=== PATIENT | male | born 1940 | race Caucasian/White ===

== ENCOUNTER 2017-06-12 13:23 | Inpatient (IN) | payer MEDICARE, OTHER, SELFPAY ==
[2017-06-12] VITALS (9 sets, daily range): BP systolic 120–139; BP diastolic 58–79; PULSE 55–94; RESP 15–18; TEMP 36.7–37.3; O2SAT 96–99; BMI 30.3; BMI 30.2
--- NOTE | 2017-06-12 13:52 | CT_ITS ---
STUDY: CT BRAIN WITHOUT CONTRAST REASON FOR EXAM: Male, 76 years old. Syncope RADIATION DOSAGE (If Supplied By Facility): CTDIvol = ( 44.99 ) mGy, DLP = ( 812.98 ) mGycm TECHNIQUE: Transaxial CT imaging of the brain was performed without administration of intravenous contrast material. Individualized dose optimization techniques were used for this CT. COMPARISON: 11/26/2003 FINDINGS: Normal soft tissue structures. Normal calvarium. There is mild cerebral atrophy with widening of the extra-axial spaces and ventricular dilatation. There are areas of decreased attenuation within the white matter tracts of the supratentorial brain, consistent with microvascular disease changes. Normal basal ganglia and thalami. Normal brainstem. There is mild cerebellar atrophy. There is no intracranial hemorrhage. There are no findings of an acute ischemic infarction. Normal visualized paranasal sinuses. CT/Brain/Head without Contrast IMPRESSION: Chronic involutional changes of the brain. Electronically Signed: Shan Nunez DO at 14:56 EDT Tel , Service support ,
--- NOTE | 2017-06-12 13:52 | RAD_ITS ---
STUDY: X-RAY CHEST REASON FOR EXAM: Male, 76 years old. Syncope. TECHNIQUE: Single frontal view of the chest. COMPARISON: None. FINDINGS: There is low volume inspiration. There is no demonstrated pleural abnormality. There is borderline cardiomegaly. Normal mediastinum and nemo. Normal visualized pulmonary arteries. Normal visualized aortic arch and descending thoracic aorta. Normal visualized thoracic spine. Normal visualized ribs, clavicles, and shoulders. There is no demonstrated abnormality of the visualized soft tissue structures of the upper abdomen. RAD/Chest 1 View (Portable) IMPRESSION: Borderline cardiomegaly with low volume inspiration. No acute pathology. Electronically Signed: Mohinder Ross MD at 14:23 EDT , Service support ,
--- NOTE | 2017-06-12 13:52 | CT_ITS ---
STUDY: CT CERVICAL SPINE WITHOUT CONTRAST REASON FOR EXAM: Male, 76 years old. Syncope with neck injury RADIATION DOSAGE (If Supplied By Facility): CTDIvol = ( 13.29 ) mGy, DLP = ( 289.75 ) mGycm TECHNIQUE: High resolution transaxial imaging was performed without contrast material. Sagittal and coronal images were reconstructed. Individualized dose optimization techniques were used for this CT. COMPARISON: None FINDINGS: Normal craniovertebral junction. Normal anterior atlantoaxial articulation. Normal odontoid process. Normal cervical lordosis. Normal vertebral bodies and posterior osseous elements. No acute fracture or listhesis. Mild diffuse demineralization. Odve-sk-oroyvlpw multilevel degenerative disc disease without critical central canal stenosis. Multilevel facet degenerative change. Normal visualized soft tissue structures. CT/Spine Cervical without Contras IMPRESSION: Multilevel degenerative changes, as described above. Electronically Signed: Shan Nunez DO at 14:56 EDT Tel , Service support ,
--- NOTE | 2017-06-12 13:55 | EKG12_ITS ---
Test Reason : DYSRHYTHMIA Blood Pressure : / mmHG Vent. Rate : 054 BPM Atrial Rate : 054 BPM P-R Int : 200 ms QRS Dur : 112 ms QT Int : 454 ms P-R-T Axes : 060 006 022 degrees QTc Int : 430 ms Sinus bradycardia Otherwise normal ECG Confirmed by JEAN PAUL KOO, TULIO ([id number]), video news editor JAZMÍN OCONNELL ([id number] on 06/14/2017 1:47:07 PM Referred By: ARMAND Confirmed By:TULIO REAVES MD
--- NOTE | 2017-06-12 14:00 | ED.VISSUMM ---
- ER Visit Summary Date of Service: 06/12/17 Chief Complaint: GI bleed History of Present Illness: The patient is a 76 M who had a colonoscopy about 10 days ago. This was a routine colonoscopy and he did have several polyps removed. He said everything else went well. This was done by Dr. Westbrook. The patient was doing well until 2 days ago. He had a bowel movement with bright red blood. He developed nausea, dizziness, and he had a syncopal episode. He did hit his head. He had a similar episode yesterday. He had 3 episodes of vomiting and syncope. Today, his family felt he looked pale and so they brought him to the ED. He denies any abdominal pain. He does take aspirin. Physical Examination: Vital signs unremarkable. Afebrile. Alert and oriented. Skin slightly pale but otherwise normal. Heart regular. Lungs clear. Abdomen soft and nontender. Test Results: EKG, troponin, labs, coags, type and screen, CT head and neck, and chest x-ray pending. Emergency Department Course and Treatment: IV access obtained. Patient placed on a monitor. I spoke with Dr. Chun who was on-call for Dr. Westbrook. Patient will likely need rescoped. He said the patient should have nothing more than clears. I made the patient n.p.o. for now. Will continue to monitor. Hemoglobin 9.1. The rest of his lab work unremarkable. Troponin and EKG were fine. Chest x-ray, CT head and neck were fine. Just chronic changes. Patient remained stable. No further syncope or bleeding. No symptoms. I believe at this time, he is appropriate for medical floor with telemetry. I spoke with the hospitalist who will admit. Treatment Plan: As above Disposition: Admission Impression: 1. GI bleed 2. Anemia This note was generated with [employer] dictation software. It may contain incorrect words, spelling, and punctuation that were not noted in review of the chart prior to signing ED Disposition - Plan for ED Patient: Chief Complaint: GI Bleed Referrals: Reji Esteban MD [Primary Care Provider] -
[2017-06-12 14:27] LABS: Absolute Lymphocyte Count 1.37 X10^3/ul (0.83-4.51); Absolute Neutrophil Count 7.2 X10^3/uL (2.0-7.7); Basophil# 0.03 X10^3/uL; Basophil% 0.3 % (0-1); Eosinophil# 0.02 X10^3/uL; Eosinophils% 0.2 % (0-5); Hematocrit 26.6 % (40-54); Hemoglobin 9.1 g/dl (13.0-16.5); Lymphocyte # 1.37 X10^3/ul (4.0); Lymphocyte % 14.8 % (19-41); Mean Corp Hgb Conc 34.2 g/gl (32-36); Mean Corpuscular Hgb 31.4 pg (27.0-32.0); Mean Corpuscular Volume 91.7 fL (80-94); Mean Platelet Vol. 10.1 fl (6.2-12.0); Monocyte# 0.62 X10^3/uL; Monocyte% 6.7 % (0-10); Neutrophil # 7.22 X10^3/uL (2.7-7.7); Neutrophil % 77.8 % (47-70); POSITIVE COUNT NO; POSITIVE DIFFERENTIAL NO; POSITIVE MORPHOLOGY NO; Platelet Count 176 K/mm3 (150-450); RBC Distribution Width CV 13.8 % (11.6-14.6); RBC Distribution Width SD 44.9 fl (35.1-43.9); White Blood Count 9.3 K/mm3 (4.4-11.0)
[2017-06-12 14:43] LABS: ALB/GLOB Ratio 1.1 RATIO (0.9-2.4); AST(SGOT) 14 U/L (15-37); Alanine Aminotransfer ALT/SGPT 26 U/L (16-61); Alkaline Phosphatase 60 U/L (45-117); Anion Gap 8 (5-15); BUN 17 mg/dL (7-18); BUN/Creat Ratio 17.3 RATIO (10-20); Calcium,Total 7.5 mg/dL (8.5-10.1); Chloride 116 mmol/L (98-107); Creatinine, Serum 0.98 mg/dL (0.70-1.30); EST Glomerular Filtration Rate 79 mL/min (>60); Est Glom Filt Rate - Afr Amer 96 mL/min (>60); Estimated Creatinine Clearance 59.68 ml/min; Globulin 2.7 g/dL (2.2-4.2); Glucose 110 mg/dL (74-106); Potassium 3.6 mmol/L (3.5-5.1); Protein, Total 5.7 g/dL (6.4-8.2); Sodium Level 148 mmol/L (136-145)
[2017-06-12 14:45] LABS: International Normalized Ratio 1.2; Prothrombin Time (Protime)PT. 15.5 SECONDS (11.7-14.9)
[2017-06-12 14:46] LABS: Partial Thromboplast Time 26.1 Seconds (24.1-36.2)
--- NOTE | 2017-06-12 16:16 | PCM.HP.STD ---
Problem List (1) Hypertension Status: Chronic (2) BPH (benign prostatic hyperplasia) Status: Chronic (3) Colonic polyps status post polypectomy Status: Acute (4) Lower GI bleed Status: Acute (5) Acute anemia secondary to LGI blood loss Status: Acute (6) Syncope and collapse Status: Acute (7) Fall Status: Acute History of Present Illness Date of Admission: 06/12/17 Chief Complaint: Syncope and lower GI bleed The patient is a 76 year old M came to ER with lower GI bleed since night after it colonoscopy with multiple polypectomy about 10 days ago. Patient further said he had multiple bright red rectal bleed with diarrhea on and Wednesday night. Patient also felt nauseated dizziness. He had syncope and hit his head on . He had similar 3-4 times syncope yesterday but did not had major injury. In the ER, CT C-spine and brain was done which does not show acute change. Chest x-ray no acute pathology. Hemoglobin in the ER 9.8 g percent platelet 1 76,000. No previous lab work to compare with. EKG shows sinus bradycardia at 54 beats per minute. No acute ST-T changes Past Medical History Past Medical History (Chronic Problems): Chronic Problems Hypertension (Chronic) BPH (benign prostatic hyperplasia) (Chronic) Allergies No Known Allergies Allergy (Verified 06/12/17 13:28) Home Medications: Ambulatory Orders Medication Instructions Recorded Amlodipine Besylate [Norvasc] 2.5 mg PO DAILY 06/12/17 Aspirin [Aspirin, Baby] 81 mg PO DAILY@0800 06/12/17 Atorvastatin Calcium 20 mg PO QHS 06/12/17 Doxazosin Mesylate [Cardura] 8 mg PO DAILY 06/12/17 Finasteride [Proscar] 5 mg PO DAILY 06/12/17 Multivitamin [Multiple Vitamins] 1 each PO DAILY 06/12/17 Tadalafil [Cialis] 20 mg PO 06/12/17 Smoking Status: Never smoker Review of Systems Constitutional: Denies: Chills, Fever, Weight Change HEENT: Denies: Head Aches, Sinus Congestion, Sinus Drainage Cardiovascular: Reports: Light Headedness, Syncope. Denies: Chest Pain, Palpitations Respiratory: Denies: Cough, Shortness of breath at rest, Sputum production Gastrointestinal: Reports: Hematochezia, Nausea. Denies: Abdominal Pain, Vomiting Genitourinary: Denies: Dysuria Musculoskeletal: Denies: Joint Pain, Joint Tenderness Skin: Denies: Rash, Wounds Neurological: Denies: Numbness, Tingling, Focal weakness Psychiatric: Denies: Anxiety, Depression, Homicidal Ideations, Suicidal Ideations Hematologic/ Lymphatic: Denies: Easy Bruising, Easy Bleeding VTE Information - Inpt Only VTE Present on Admission: No VTE Mechan Device Prophylaxis: SCD's Reason prophylaxis not ordered:: Medical Contraindication - Active lower GI bleed Patient Problems: Active and Suspected Problems Colonic polyps status post polypectomy (Acute) Lower GI bleed (Acute) Acute anemia secondary to LGI blood loss (Acute) Syncope and collapse (Acute) Fall (Acute) - Physical Exam General: Alert, Oriented x3, Cooperative HEENT: Atraumatic, PERRLA, EOMI, Normocephalic Oral: Dry Mucosa Neck: Supple, No JVD, Negative Carotid Bruits Lungs: Clear to auscultation, Normal air movement Cardiovascular: Normal S1, Normal S2, No murmurs, Bradycardic Abdomen: Bowel Sounds Present, Soft, Non Tender, Non-Distended Extremities: No edema, Capillary Refill Less than 3 Seconds Skin: No rashes, No breakdown Musculoskeletal: No Tenderness to Palpation of Joints or Extremities Neurological: Cranial nerves II-XII grossly intact Psych/Mental Status: Normal Affect, Appropriate Vital Signs Temp Pulse Resp BP Pulse Ox 98.1 F 64 18 120/77 97 06/12/17 13:24 06/12/17 16:02 06/12/17 16:02 06/12/17 16:02 06/12/17 16:02 Assessment/Plan Active and Suspected Problems Colonic polyps status post polypectomy (Acute) Lower GI bleed (Acute) Acute anemia secondary to LGI blood loss (Acute) Syncope and collapse (Acute) Fall (Acute) The patient is a 76 year old M came to ER with lower GI bleed since night after it colonoscopy with multiple polypectomy about 10 days ago. Patient further said he had multiple bright red rectal bleed with diarrhea on and Wednesday night. Patient also felt nauseated dizziness. He had syncope and hit his head on . He had similar 3-4 times syncope yesterday but did not had major injury. In the ER, CT C-spine and brain was done which does not show acute change. Chest x-ray no acute pathology. Hemoglobin in the ER 9.8 g percent platelet 1 76,000. No previous lab work to compare with. EKG shows sinus bradycardia at 54 beats per minute. No acute ST-T changes. 1. Acute blood loss anemia secondary to lower GI bleed: Patient is being admitted in PCU. H&H every 6 hourly. If hemoglobin drops less than 7.5 g percent, transfuse 1 unit of PRBC. IV fluid resuscitation. Monitor strict I&O's. Dr. Gonzalez been consulted by ER doctor Dr. El and he advised to keep patient n.p.o. per midnight for colonoscopy tomorrow a.m. 2. Lower GI bleed status post multiple polypectomies about 10 days ago: As mentioned above. Watch out for rectal bleed. 3. Multiple syncope and collapse and fall: I think most probably he had syncope with collapse and fall secondary to hypotension due to rectal bleed. Orthostatic vitals. IV fluid resuscitation. monitor on cardiac telemetry. Serial cardiac enzymes. Patient denies coronary artery disease, CHF or arrhythmia. 4. Other chronic comorbidities include BPH and hypertension: Blood pressure is 120/77. Does not need antihypertensive medication especially with ongoing lower GI bleed. DVT prophylaxis: Pharmacological prophylaxis contraindicated. Bilateral SCDs. Laboratory Results 06/12/17 14:10: WBC 9.3, RBC 2.90 L, Hgb 9.1 L, Hct 26.6 L, MCV 91.7, MCH 31.4, MCHC 34.2, RDW 13.8, RDW Differential 44.9 H, Plt Count 176, MPV 10.1, Immature Gran % (Auto) 0.200, Neut % (Auto) 77.8 H, Lymph % (Auto) 14.8 L, [place] % (Auto) 6.7, Eos % (Auto) 0.2, Baso % (Auto) 0.3, Absolute Neuts (auto) 7.2, Absolute Lymphs (auto) 1.37, Total Counted Not Reportable 06/12/17 14:10: PT 15.5 H, INR 1.2, APTT 26.1 06/12/17 14:10: Sodium 148 H, Potassium 3.6, Chloride 116 H, Carbon Dioxide 24.0, Anion Gap 8, BUN 17, Creatinine 0.98, Estim Creat Clear Calc 59.68, Est GFR (MDRD) Af Amer 96, Est GFR (MDRD) Non-Af 79, BUN/Creatinine Ratio 17.3, Glucose 110 H, Calcium 7.5 L, Total Bilirubin 0.30, AST 14 L, ALT 26, Alkaline Phosphatase 60, Troponin I < 0.02, Total Protein 5.7 L, Albumin 3.0 L, Globulin 2.7, Albumin/Globulin Ratio 1.1 06/12/17 14:10: Blood Type O POSITIVE, Antibody Screen NEGATIVE Clinical Impression(s) from Imaging Studies Brain CT 06/12/17 13:52 IMPRESSION: Chronic involutional changes of the brain. Electronically Signed: Shan Nunez DO at 14:56 EDT Tel , Service support , Cervical Spine CT 06/12/17 13:52 IMPRESSION: Multilevel degenerative changes, as described above. Electronically Signed: Shan Nunez DO at 14:56 EDT Tel , Service support , Chest X-Ray 06/12/17 13:52 IMPRESSION: Borderline cardiomegaly with low volume inspiration. No acute pathology. Electronically Signed: Mohinder Ross MD at 14:23 EDT , Service support , This note was generated with [employer] dictation software. Every effort was made to ensure accuracy, however computerized player development manager mistakes may persist. [] Code Visit Inpatient E&M: 79946 Init Hosp L3
--- NOTE | 2017-06-12 16:28 | HP.PCM_ITS ---
Problem List (1) Hypertension Status: Chronic (2) BPH (benign prostatic hyperplasia) Status: Chronic (3) Colonic polyps status post polypectomy Status: Acute (4) Lower GI bleed Status: Acute (5) Acute anemia secondary to LGI blood loss Status: Acute (6) Syncope and collapse Status: Acute (7) Fall Status: Acute History of Present Illness Date of Admission: 06/12/17 Chief Complaint: Syncope and lower GI bleed The patient is a 76 year old M came to ER with lower GI bleed since night after it colonoscopy with multiple polypectomy about 10 days ago. Patient further said he had multiple bright red rectal bleed with diarrhea on and Wednesday night. Patient also felt nauseated dizziness. He had syncope and hit his head on . He had similar 3-4 times syncope yesterday but did not had major injury. In the ER, CT C-spine and brain was done which does not show acute change. Chest x-ray no acute pathology. Hemoglobin in the ER 9.8 g percent platelet 1 76,000. No previous lab work to compare with. EKG shows sinus bradycardia at 54 beats per minute. No acute ST-T changes Past Medical History Past Medical History (Chronic Problems): Chronic Problems Hypertension (Chronic) BPH (benign prostatic hyperplasia) (Chronic) Allergies No Known Allergies Allergy (Verified 06/12/17 13:28) Home Medications: Ambulatory Orders Medication Instructions Recorded Amlodipine Besylate [Norvasc] 2.5 mg PO DAILY 06/12/17 Aspirin [Aspirin, Baby] 81 mg PO DAILY@0800 06/12/17 Atorvastatin Calcium 20 mg PO QHS 06/12/17 Doxazosin Mesylate [Cardura] 8 mg PO DAILY 06/12/17 Finasteride [Proscar] 5 mg PO DAILY 06/12/17 Multivitamin [Multiple Vitamins] 1 each PO DAILY 06/12/17 Tadalafil [Cialis] 20 mg PO 06/12/17 Smoking Status: Never smoker Review of Systems Constitutional: Denies: Chills, Fever, Weight Change HEENT: Denies: Head Aches, Sinus Congestion, Sinus Drainage Cardiovascular: Reports: Light Headedness, Syncope. Denies: Chest Pain, Palpitations Respiratory: Denies: Cough, Shortness of breath at rest, Sputum production Gastrointestinal: Reports: Hematochezia, Nausea. Denies: Abdominal Pain, Vomiting Genitourinary: Denies: Dysuria Musculoskeletal: Denies: Joint Pain, Joint Tenderness Skin: Denies: Rash, Wounds Neurological: Denies: Numbness, Tingling, Focal weakness Psychiatric: Denies: Anxiety, Depression, Homicidal Ideations, Suicidal Ideations Hematologic/ Lymphatic: Denies: Easy Bruising, Easy Bleeding VTE Information - Inpt Only VTE Present on Admission: No VTE Mechan Device Prophylaxis: SCD's Reason prophylaxis not ordered:: Medical Contraindication - Active lower GI bleed Patient Problems: Active and Suspected Problems Colonic polyps status post polypectomy (Acute) Lower GI bleed (Acute) Acute anemia secondary to LGI blood loss (Acute) Syncope and collapse (Acute) Fall (Acute) - Physical Exam General: Alert, Oriented x3, Cooperative HEENT: Atraumatic, PERRLA, EOMI, Normocephalic Oral: Dry Mucosa Neck: Supple, No JVD, Negative Carotid Bruits Lungs: Clear to auscultation, Normal air movement Cardiovascular: Normal S1, Normal S2, No murmurs, Bradycardic Abdomen: Bowel Sounds Present, Soft, Non Tender, Non-Distended Extremities: No edema, Capillary Refill Less than 3 Seconds Skin: No rashes, No breakdown Musculoskeletal: No Tenderness to Palpation of Joints or Extremities Neurological: Cranial nerves II-XII grossly intact Psych/Mental Status: Normal Affect, Appropriate Vital Signs Temp Pulse Resp BP Pulse Ox 98.1 F 64 18 120/77 97 06/12/17 13:24 06/12/17 16:02 06/12/17 16:02 06/12/17 16:02 06/12/17 16:02 Assessment/Plan Active and Suspected Problems Colonic polyps status post polypectomy (Acute) Lower GI bleed (Acute) Acute anemia secondary to LGI blood loss (Acute) Syncope and collapse (Acute) Fall (Acute) The patient is a 76 year old M came to ER with lower GI bleed since night after it colonoscopy with multiple polypectomy about 10 days ago. Patient further said he had multiple bright red rectal bleed with diarrhea on and Wednesday night. Patient also felt nauseated dizziness. He had syncope and hit his head on . He had similar 3-4 times syncope yesterday but did not had major injury. In the ER, CT C-spine and brain was done which does not show acute change. Chest x-ray no acute pathology. Hemoglobin in the ER 9.8 g percent platelet 1 76,000. No previous lab work to compare with. EKG shows sinus bradycardia at 54 beats per minute. No acute ST-T changes. 1. Acute blood loss anemia secondary to lower GI bleed: Patient is being admitted in PCU. H&H every 6 hourly. If hemoglobin drops less than 7.5 g percent, transfuse 1 unit of PRBC. IV fluid resuscitation. Monitor strict I&O' s. Dr. Gonzalez been consulted by ER doctor Dr. El and he advised to keep patient n.p.o. per midnight for colonoscopy tomorrow a.m. 2. Lower GI bleed status post multiple polypectomies about 10 days ago: As mentioned above. Watch out for rectal bleed. 3. Multiple syncope and collapse and fall: I think most probably he had syncope with collapse and fall secondary to hypotension due to rectal bleed. Orthostatic vitals. IV fluid resuscitation. monitor on cardiac telemetry. Serial cardiac enzymes. Patient denies coronary artery disease, CHF or arrhythmia. 4. Other chronic comorbidities include BPH and hypertension: Blood pressure is 120/77. Does not need antihypertensive medication especially with ongoing lower GI bleed. DVT prophylaxis: Pharmacological prophylaxis contraindicated. Bilateral SCDs. Laboratory Results 06/12/17 14:10: WBC 9.3, RBC 2.90 L, Hgb 9.1 L, Hct 26.6 L, MCV 91.7, MCH 31.4, MCHC 34.2, RDW 13.8, RDW Differential 44.9 H, Plt Count 176, MPV 10.1, Immature Gran % (Auto) 0.200, Neut % (Auto) 77.8 H, Lymph % (Auto) 14.8 L, [place] % (Auto) 6.7, Eos % (Auto) 0.2, Baso % (Auto) 0.3, Absolute Neuts (auto) 7.2, Absolute Lymphs (auto) 1.37, Total Counted Not Reportable 06/12/17 14:10: PT 15.5 H, INR 1.2, APTT 26.1 06/12/17 14:10: Sodium 148 H, Potassium 3.6, Chloride 116 H, Carbon Dioxide 24.0 , Anion Gap 8, BUN 17, Creatinine 0.98, Estim Creat Clear Calc 59.68, Est GFR ( MDRD) Af Amer 96, Est GFR (MDRD) Non-Af 79, BUN/Creatinine Ratio 17.3, Glucose 110 H, Calcium 7.5 L, Total Bilirubin 0.30, AST 14 L, ALT 26, Alkaline Phosphatase 60, Troponin I < 0.02, Total Protein 5.7 L, Albumin 3.0 L, Globulin 2.7, Albumin/Globulin Ratio 1.1 06/12/17 14:10: Blood Type O POSITIVE, Antibody Screen NEGATIVE Clinical Impression(s) from Imaging Studies Brain CT 06/12/17 13:52 IMPRESSION: Chronic involutional changes of the brain. Electronically Signed: Shan Nunez DO at 14:56 EDT Tel , Service support , Cervical Spine CT 06/12/17 13:52 IMPRESSION: Multilevel degenerative changes, as described above. Electronically Signed: Shan Nunez DO at 14:56 EDT Tel , Service support , Chest X-Ray 06/12/17 13:52 IMPRESSION: Borderline cardiomegaly with low volume inspiration. No acute pathology. Electronically Signed: Mohinder Ross MD at 14:23 EDT , Service support , This note was generated with [employer] dictation software. Every effort was made to ensure accuracy, however computerized air brake adjuster mistakes may persist. [] Code Visit Inpatient E&M: 10330 Init Hosp L3
[2017-06-12] MEDS: 0.9% Normal Saline 1,000 ML 500 ML IV (17:24)
[2017-06-12 17:45] LABS: Bedside Glucose 107 mg/dL (70-110)
[2017-06-12 18:11] LABS: Hematocrit 26.1 % (40-54); Hemoglobin 8.8 g/dl (13.0-16.5)
--- NOTE | 2017-06-12 19:21 | CON.PCM_ITS ---
Reason for Consult Date of Consultation: 06/12/17 History of Present Illness: The patient is a 76 year old M who underwent a colonoscopy with cecal polypectomy by Dr. Westbrook on June 02, 2017. The patient had 2 polyps removed via snare polypectomy. Both polyps were located in the cecum. One polyp was 5 mm the other was 15 mm. Pathology returned as tubular adenomas area. The patient was doing well until evening. At that time, the patient noted bloody liquid stools to Wednesday. He presented to the ER. He was found to have a hgb of 9.1. the patient has had laboratory studies drawn at [facility], but these were for metabolic panel, lipid and prostate screening, he has not had a CBC listed in our system. He has not had a bowel movement today. Past Medical History Past Medical History (Chronic Problems): Chronic Problems Hypertension (Chronic) BPH (benign prostatic hyperplasia) (Chronic) Allergies No Known Allergies Allergy (Verified 06/12/17 13:28) Home Medications: Ambulatory Orders Medication Instructions Recorded Amlodipine Besylate [Norvasc] 7.5 mg PO DAILY 06/12/17 Aspirin [Aspirin, Baby] 81 mg PO DAILY@0800 06/12/17 Atorvastatin Calcium 20 mg PO QHS 06/12/17 Doxazosin Mesylate [Cardura] 8 mg PO DAILY 06/12/17 Finasteride [Proscar] 5 mg PO DAILY 06/12/17 Multivitamin [Multiple Vitamins] 1 each PO DAILY 06/12/17 Tadalafil [Cialis] 20 mg PO PRN PRN 06/12/17 Smoking Status: Never smoker Review of Systems Constitutional: Denies: Chills, Fever, Weight Change HEENT: Denies: Head Aches, Sinus Congestion, Sinus Drainage Cardiovascular: Denies: Chest Pain, Palpitations Respiratory: Denies: Cough, Shortness of breath at rest, Sputum production Gastrointestinal: Reports: Hematochezia. Denies: Abdominal Pain, Nausea, Vomiting Genitourinary: Denies: Dysuria Musculoskeletal: Denies: Joint Pain, Joint Tenderness Skin: Denies: Rash, Wounds Neurological: Denies: Numbness, Tingling, Focal weakness Psychiatric: Denies: Anxiety, Depression, Homicidal Ideations, Suicidal Ideations Hematologic/ Lymphatic: Denies: Easy Bruising, Easy Bleeding Patient Problems: Active and Suspected Problems Colonic polyps status post polypectomy (Acute) Lower GI bleed (Acute) Acute anemia secondary to LGI blood loss (Acute) Syncope and collapse (Acute) Fall (Acute) - Physical Exam General: Alert, Oriented x3 Lungs: Clear to auscultation, Normal air movement Cardiovascular: Regular rate, No murmurs Abdomen: Bowel Sounds Present, Soft, Non Tender Vital Signs Temp Pulse Resp BP Pulse Ox 99.1 F 58 L 16 127/62 H 97 06/12/17 16:54 06/12/17 17:01 06/12/17 16:54 06/12/17 16:55 06/12/17 16:54 Oxygen Delivery Method Room Air Weight: 85.1 kg Body Mass Index (BMI) 30.2 Orthostatic Vital Signs Start: 06/12/17 16:55 Freq: q24h Status: Active Protocol: Activity Type Activity Date Activity User E-Sign Co-Sign Detail Recorded Client Recorded Date Recorded By Document 06/12/17 16:55 AML [id number] 06/12/17 16:59 AML 06/12/17 16:55 Orthostatic Vitals Standing -Blood Pressure (90/60-120/80) 130/79 H -Extremity Use Right Arm -Pulse Rate (60-100) 94 Sitting -Blood Pressure (90/60-120/80) 134/77 H -Extremity Use Right Arm -Pulse Rate (60-100) 75 Lying -Blood Pressure (90/60-120/80) 127/62 H -Extremity Use Right Arm -Pulse Rate (60-100) 55 L Intake and Output for Last 24 Hours 06/10/17 06/11/17 06/12/17 23:59 23:59 23:59 Intake Total 1076 / 1076 Balance 1076 / 1076 Laboratory Tests Past 24 Hrs 06/12/17 06/12/17 17:52 17:52 Hgb 8.8 L Hct 26.1 L Troponin I < 0.02 POC Glucose 06/12/17 17:39 POC Glucose 107 Assessment/Plan Active and Suspected Problems Colonic polyps status post polypectomy (Acute) Lower GI bleed (Acute) Acute anemia secondary to LGI blood loss (Acute) Syncope and collapse (Acute) Fall (Acute) post polypectomy bleed I discussed with the patient. The post-polypectomy bleeding typically occurs 5- 14 days after polypectomy. This is both a function of the cauterized site at the snare polypectomy sloughing and the natural healing process of neovascularization which can occasionally have significant bleeding. Clinically the patient has had a rather significant bleed, but he has not noticed any bleeding since Wednesday. Will follow serial Hgb. If patient has significant Hgb drop or additional bloody stools, will perform repeat colonoscopy. OK with clears. NPO if any further bleeding, plan I will plan for repeat colonoscopy with control of bleeding.
[2017-06-12] MEDS: Potassium Chloride 40 MEQ in 0.9% Normal Saline 1,000 ML 125 MEQ IV (20:08)
[2017-06-12 21:17] LABS: Bacteria 0 SEEN /hpf (None Seen); Red Blood Cells-Urine 0 SEEN /hpf (0-5); Squamous Epithelial Cells - UA 0 SEEN /hpf (0-5)
[2017-06-12 21:22] LABS: Color, Urine Yellow (Yellow); Glucose, Dipstick 100 mg/dl (Normal); Ketone-Dipstick Negative (Negative); Leukocyte Esterase-Dipstick 25 /ul (Negative); Nitrite-Dipstick Negative (Negative); Occult Blood-Urine Negative /ul (Negative); Protein-Dipstick 30 mg/dl (Negative); Specific Gravity, Urine 1.025 (1.002-1.030); Urine Bilirubin Dipstick Negative (Negative); Urine Clarity Clear (Clear); Urine Urobilinogen Normal (Normal)
[2017-06-12 21:29] LABS: Mucous, Urine 3+ /hpf (<or=2+); White Blood Cells 0-5 SEEN /hpf (0-5)
[2017-06-12 21:30] LABS: Hyaline Cast 5-10 SEEN /lpf (0-5)
[2017-06-12] MEDS: Atorvastatin Calcium 20 MG Tablet PO (23:01)
[2017-06-12] MEDS: Finasteride 5 MG Tablet PO (23:02)
[2017-06-12] MEDS: Doxazosin 4 MG Tablet 8 MG PO ×2 (23:15→23:20)
[2017-06-13] VITALS (19 sets, daily range): BP systolic 92–139; BP diastolic 51–74; PULSE 56–101; RESP 15–17; TEMP 36.4–37.2; O2SAT 92–96
[2017-06-13 01:32] LABS: Hematocrit 22.2 % (40-54); Hemoglobin 7.5 g/dl (13.0-16.5)
--- NOTE | 2017-06-13 02:26 | NURSING ---
0200: PAGED DR FLOYD TO REPORT HGB OF 7.5. RCVD ORDER TO TRANSFUSE 1 UNIT OF PRBC'S. PLACED ORDER AND NOTIFIED LAB.
--- NOTE | 2017-06-13 03:10 | NURSING ---
INFORMED PATIENT THAT HIS HGB LEVEL HAS DROPPED AND A RESULT WILL BE RCVNG 1 UNIT OF PRBC.
--- NOTE | 2017-06-13 04:22 | NURSING ---
UNIT OF PRBC'S INITIATED AT THIS TIME FOR HGB OF 7.5. VSS. NSR. REVIEWED S/S WITH PT.
[2017-06-13 04:30] LABS: Hematocrit 22.1 % (40-54); Hemoglobin 7.4 g/dl (13.0-16.5); Mean Corp Hgb Conc 33.5 g/gl (32-36); Mean Corpuscular Hgb 31.1 pg (27.0-32.0); Mean Corpuscular Volume 92.9 fL (80-94); Mean Platelet Vol. 10.1 fl (6.2-12.0); Platelet Count 152 K/mm3 (150-450); RBC Distribution Width CV 13.9 % (11.6-14.6); RBC Distribution Width SD 44.9 fl (35.1-43.9); Red Blood Count 2.38 M/mm3 (4.6-6.2); White Blood Count 6.7 K/mm3 (4.4-11.0)
[2017-06-13 04:50] LABS: Scan Indicated on CBC? Y/N NO
[2017-06-13 05:00] LABS: International Normalized Ratio 1.3; Prothrombin Time (Protime)PT. 16.1 SECONDS (11.7-14.9)
[2017-06-13 05:54] LABS: Anion Gap 7 (5-15); BUN 10 mg/dL (7-18); BUN/Creat Ratio 12.3 RATIO (10-20); Calcium,Total 7.2 mg/dL (8.5-10.1); Chloride 117 mmol/L (98-107); Creatinine, Serum 0.82 mg/dL (0.70-1.30); EST Glomerular Filtration Rate 98 mL/min (>60); Est Glom Filt Rate - Afr Amer 119 mL/min (>60); Estimated Creatinine Clearance 71.32 ml/min; Glucose 98 mg/dL (74-106); Potassium 3.5 mmol/L (3.5-5.1); Sodium Level 147 mmol/L (136-145)
--- NOTE | 2017-06-13 06:51 | NURSING ---
UNIT OF PRBC'S COMPLETED AT THIS TIME. VSS. NO S/S OF ANY SIDE EFFECTS NOTED AT THIS TIME
[2017-06-13] MEDS: amLODIPine 2.5 MG Tablet 7.5 MG PO (08:49)
[2017-06-13 08:50] LABS: Bedside Glucose 116 mg/dL (70-110)
[2017-06-13] MEDS: Potassium Chloride 40 MEQ in 0.9% Normal Saline 1,000 ML 125 MEQ IV (08:53)
[2017-06-13 09:26] LABS: Hematocrit 26.9 % (40-54); Hemoglobin 9.1 g/dl (13.0-16.5)
--- NOTE | 2017-06-13 10:34 | PCM.PN.SRG ---
Patient Problems: Active and Suspected Problems Colonic polyps status post polypectomy (Acute) Lower GI bleed (Acute) Acute anemia secondary to LGI blood loss (Acute) Syncope and collapse (Acute) Fall (Acute) Subjective: no further bleeding, some fatigue-may be related to poor sleep overnight due to multiple blood draws, patient concerned about planned trip out of state . - Physical Exam General: Alert, Oriented x3 Abdomen: - - abdomen benign Vital Signs Temp Pulse Resp BP Pulse Ox 98.4 F 58 L 15 121/67 H 93 06/13/17 08:22 06/13/17 08:22 06/13/17 08:22 06/13/17 08:22 06/13/17 08:22 Oxygen Delivery Method Room Air Weight: 85.1 kg Body Mass Index (BMI) 30.2 Orthostatic Vital Signs Start: 06/12/17 16:55 Freq: q24h Status: Active Protocol: Activity Type Activity Date Activity User E-Sign Co-Sign Detail Recorded Client Recorded Date Recorded By Document 06/13/17 05:42 [facility] [id number] 06/13/17 05:43 LSS 06/13/17 05:42 Orthostatic Vitals Standing -Blood Pressure (90/60-120/80) 92/59 L -Extremity Use Left Arm -Pulse Rate (60-100) 101 H Sitting -Blood Pressure (90/60-120/80) 123/70 H -Extremity Use Left Arm -Pulse Rate (60-100) 68 Lying -Blood Pressure (90/60-120/80) 126/61 H -Extremity Use Left Arm -Pulse Rate (60-100) 64 Intake and Output for Last 24 Hours 06/11/17 06/12/17 06/13/17 23:59 23:59 23:59 Intake Total 1076 / 1076 2239 / 2239 Balance 1076 / 1076 2239 / 2239 Laboratory Tests Past 24 Hrs 06/12/17 06/12/17 06/12/17 17:52 17:52 20:55 WBC RBC Hgb 8.8 L Hct 26.1 L MCV MCH MCHC RDW RDW Differential Plt Count MPV PT INR Sodium Potassium Chloride Carbon Dioxide Anion Gap BUN Creatinine Estim Creat Clear Calc Est GFR (MDRD) Af Amer Est GFR (MDRD) Non-Af BUN/Creatinine Ratio Glucose Calcium Troponin I < 0.02 Urine Color Yellow Urine Clarity Clear Urine pH 5.0 Ur Specific Spangle 1.025 Urine Protein 30 H Urine Glucose (UA) 100 H Urine Ketones Negative Urine Occult Blood Negative Urine Nitrite Negative Urine Bilirubin Negative Urine Urobilinogen Normal Ur Leukocyte Esterase 25 H Urine RBC 0 SEEN Urine WBC 0-5 SEEN Ur Squamous Epith Cells 0 SEEN Urine Bacteria 0 SEEN Hyaline Casts 5-10 SEEN Urine Mucus 3+ 06/12/17 06/13/17 06/13/17 21:45 01:25 04:17 WBC 6.7 RBC 2.38 L Hgb 7.5 L 7.4 L Hct 22.2 L 22.1 L MCV 92.9 MCH 31.1 MCHC 33.5 RDW 13.9 RDW Differential 44.9 H Plt Count 152 MPV 10.1 PT INR Sodium Potassium Chloride Carbon Dioxide Anion Gap BUN Creatinine Estim Creat Clear Calc Est GFR (MDRD) Af Amer Est GFR (MDRD) Non-Af BUN/Creatinine Ratio Glucose Calcium Troponin I < 0.02 Urine Color Urine Clarity Urine pH Ur Specific Spangle Urine Protein Urine Glucose (UA) Urine Ketones Urine Occult Blood Urine Nitrite Urine Bilirubin Urine Urobilinogen Ur Leukocyte Esterase Urine RBC Urine WBC Ur Squamous Epith Cells Urine Bacteria Hyaline Casts Urine Mucus 06/13/17 06/13/17 06/13/17 04:17 04:17 04:17 WBC RBC Hgb Hct MCV MCH MCHC RDW RDW Differential Plt Count MPV PT 16.1 H INR 1.3 Sodium 147 H Potassium 3.5 Chloride 117 H Carbon Dioxide 23.0 Anion Gap 7 BUN 10 Creatinine 0.82 Estim Creat Clear Calc 71.32 Est GFR (MDRD) Af Amer 119 Est GFR (MDRD) Non-Af 98 BUN/Creatinine Ratio 12.3 Glucose 98 Calcium 7.2 L Troponin I < 0.02 Urine Color Urine Clarity Urine pH Ur Specific Spangle Urine Protein Urine Glucose (UA) Urine Ketones Urine Occult Blood Urine Nitrite Urine Bilirubin Urine Urobilinogen Ur Leukocyte Esterase Urine RBC Urine WBC Ur Squamous Epith Cells Urine Bacteria Hyaline Casts Urine Mucus 06/13/17 09:10 WBC RBC Hgb 9.1 L Hct 26.9 L MCV MCH MCHC RDW RDW Differential Plt Count MPV PT INR Sodium Potassium Chloride Carbon Dioxide Anion Gap BUN Creatinine Estim Creat Clear Calc Est GFR (MDRD) Af Amer Est GFR (MDRD) Non-Af BUN/Creatinine Ratio Glucose Calcium Troponin I Urine Color Urine Clarity Urine pH Ur Specific Spangle Urine Protein Urine Glucose (UA) Urine Ketones Urine Occult Blood Urine Nitrite Urine Bilirubin Urine Urobilinogen Ur Leukocyte Esterase Urine RBC Urine WBC Ur Squamous Epith Cells Urine Bacteria Hyaline Casts Urine Mucus POC Glucose 06/13/17 06/12/17 08:20 17:39 POC Glucose 116 H 107 Medical Necessity - Tobacco Use Smoking Status: Never smoker Assessment/Plan Active and Suspected Problems Colonic polyps status post polypectomy (Acute) Lower GI bleed (Acute) Acute anemia secondary to LGI blood loss (Acute) Syncope and collapse (Acute) Fall (Acute) post polypectomy bleed I discussed with the patient. The post-polypectomy bleeding typically occurs 5-14 days after polypectomy. This is both a function of the cauterized site at the snare polypectomy sloughing and the natural healing process of neovascularization which can occasionally have significant bleeding. Clinically the patient has had a rather significant bleed, but he has not noticed any bleeding since Wednesday. patient received 1 unit of packed red cells. Hemoglobin this morning is 7.2. Currently, I feel this is most likely dilutional. While the patient does note some fatigue. He is planning to go out of town later this . I would transfuse one more unit of packed red cells to get his hemoglobin over 8. I would like the patient to follow up my office Wednesday and check a repeat hemoglobin at that time. I discussed with the patient that since he had his bleed. Already, it is most likely stopped and it is unlikely he would bleed again, though not impossible. With regard to his [facility], I discussed with him that I will be more concerned if I performed repeat endoscopy and either clipped or cauterized. Because we would have the same risk of postprocedure bleeding 5-[address] If the patient has no further bleeding by the time I see him in the office and his hemoglobin is stable, I'm comfortable with him leaving out of town.
[2017-06-13] MEDS: 0.9% NaCl Peripheral Flush Adult/Peds IV (12:09)
[2017-06-13 12:35] LABS: Bedside Glucose 108 mg/dL (70-110)
--- NOTE | 2017-06-13 15:13 | PCM.DC ---
- Discharge Diagnoses Current Active Problems: Current Active and Chronic Problems Hypertension (Chronic) BPH (benign prostatic hyperplasia) (Chronic) Colonic polyps status post polypectomy (Acute) Lower GI bleed (Acute) Acute anemia secondary to LGI blood loss (Acute) Syncope and collapse (Acute) Fall (Acute) You will use the following diet at home:: Regular Discharge Activity: Return to Normal Activity Call your doctor if you observe: - - Continued bleeding per rectum Additional Instructions: Hold home aspirin regimen until further notified by Dr. Chun to continue. Allergies/Adverse Reactions: Allergies No Known Allergies Allergy (Verified 06/12/17 13:28) Medications to take at Discharge Amlodipine Besylate [Norvasc] 7.5 mg PO DAILY 06/12/17 Aspirin [Aspirin, Baby] 81 mg PO DAILY@0800 06/12/17 Atorvastatin Calcium 20 mg PO QHS 06/12/17 Doxazosin Mesylate [Cardura] 8 mg PO DAILY 06/12/17 Finasteride [Proscar] 5 mg PO DAILY 06/12/17 Multivitamin [Multiple Vitamins] 1 each PO DAILY 06/12/17 Tadalafil [Cialis] 20 mg PO PRN PRN 06/12/17 Primary Care Physician: Reji Esteban MD [Primary Care Provider] - Please follow up with your Primary Care Physician in: 1 Week Please Follow Up With: Brian Chun MD When: As scheduled, 06/15/17 Proposed Discharge Date: 06/13/17
--- NOTE | 2017-06-13 15:18 | PCM.DC.SUM ---
<Monse Carlin - Last Filed: 06/13/17 15:42> Discharge Date and Diagnosis Date of Admission: 06/12/17 Date of Discharge: 06/13/17 - Primary Discharge Diagnosis Active and Suspected Problems 1. Acute blood loss anemia secondary to lower GI bleed-requiring 2 units packed red blood cells 2. Lower GI bleed secondary to recent multiple polypectomies 3. Syncope with collapse and fall, prior to admission - Secondary Discharge Diagnosis Chronic Problems Hypertension (Chronic) BPH (benign prostatic hyperplasia) (Chronic) Hospital Course and Treatment Imaging Results: Diagnostic Data Brain CT 06/12/17 13:52 IMPRESSION: Chronic involutional changes of the brain. Electronically Signed: Shan Nunez DO at 14:56 EDT Tel , Service support , Cervical Spine CT 06/12/17 13:52 IMPRESSION: Multilevel degenerative changes, as described above. Electronically Signed: Shan Nunez DO at 14:56 EDT Tel , Service support , Chest X-Ray 06/12/17 13:52 IMPRESSION: Borderline cardiomegaly with low volume inspiration. No acute pathology. Electronically Signed: Mohinder Ross MD at 14:23 EDT , Service support , Dr. Chun- Surgery Operations: None Procedures: None Summary of Care Provided: The patient is a 76 year old M admitted 06/12/2017 due to syncope and lower GI bleed. Patient had multiple polypectomy about 10 days prior to admission. He had bright red rectal bleeding with diarrhea on and Wednesday night with associated dizziness and syncope which resulted in fall where patient hit his head. He had multiple syncopal episodes thereafter. CT of the C-spine and brain was done which showed no acute findings. Chest x-ray unremarkable. Hemoglobin 9.1 on admission which did drop to 7.4. EKG showed sinus bradycardia with no ST-T changes. Troponin negative ?3. Urinalysis negative. Syncope suspected secondary to anemia. Patient denies cardiac history. Patient received a total of 2 units packed red blood cells during admission. Dr. Gonzalez consulted who will see patient as outpatient on 06/15/17. Patient will continue home aspirin regimen until further advised by surgery to continue. He denies further weakness, syncope, dizziness. Hemoglobin at discharge 9.1. Other lab work unremarkable. Patient stable for discharge home. Patient seen and examined prior to discharge. Heart rate regular rate and rhythm. Lungs clear. Abdomen soft, nontender. Neuro grossly intact. Patient denies further bowel movement since admission and denies blood per rectum. He denies dizziness, lightheadedness, syncope/presyncope. Vital signs stable. Orthostatic vitals previously positive on admission and corrected with IV fluids and 2 units packed red blood cells. Repeat orthostatic vitals negative. Patient stable for discharge home with further follow-up with primary care physician and Dr. Chun. This patient was seen by DIEGO Rebolledo under the supervision of Dr. Esposito. Discharge Diet: Low fat/ Low Cholesterol Discharge Activity: Return to Normal Activity Call your doctor if you observe: - - Continued bleeding per rectum Home Medications: Medications to take at Discharge Amlodipine Besylate [Norvasc] 7.5 mg PO DAILY 06/12/17 Aspirin [Aspirin, Baby] 81 mg PO DAILY@0800 06/12/17 Atorvastatin Calcium 20 mg PO QHS 06/12/17 Doxazosin Mesylate [Cardura] 8 mg PO DAILY 06/12/17 Finasteride [Proscar] 5 mg PO DAILY 06/12/17 Multivitamin [Multiple Vitamins] 1 each PO DAILY 06/12/17 Tadalafil [Cialis] 20 mg PO PRN PRN 06/12/17 Primary Care Physician: Reji Esteban MD [Primary Care Provider] - Please follow up with your Primary Care Physician in: 1 Week Please Follow Up With: Brian Chun MD When: As scheduled, 06/15/17 Disposition: Home Minutes spent on discharge:: 35 Patient Condition:: Stable Medical Necessity - Tobacco Use Smoking Status: Never smoker Meaningful Use Info Meaningful Use Diagnoses (Choose all that apply): None applicable <Rex Esposito - Last Filed: 06/13/17 15:46> Discharge Date and Diagnosis - Primary Discharge Diagnosis Syncope and collapse secondary to lower GI bleed/orthostatic hypotension - Secondary Discharge Diagnosis Chronic Problems Hypertension (Chronic) BPH (benign prostatic hyperplasia) (Chronic) Hospital Course and Treatment Summary of Care Provided: This patient was seen in conjunction with DIRECTOR OF ORTHOPEDICS, Monse. I have independently interviewed and examined the patient and reviewed pertinent history, examination findings, laboratory and plan of management. I have reviewed the note and agree with the documented findings with the few additional points. In brief, patient is admitted for syncope, collapse and fall secondary to lower GI bleed hemorrhage. Patient was admitted on the PCU floor. Orthostatic signs were positive and patient was restricted with the IV fluid normal saline and PRBC blood transfusion. Hemoglobin dropped to 7.4 g percent from 9.1 g percent and received 2 units of PRBC. As mentioned above, Dr. Gonzalez was consulted and patient was advised to follow-up on Wednesday. Patient did not had any further bleeding since Wednesday night and during hospital stay. Code Visit Inpatient E&M: [id number] Disch Hosp
--- NOTE | 2017-06-13 15:31 | DS.PCM_ITS ---
<Monse Carlin - Last Filed: 06/13/17 15:42> Discharge Date and Diagnosis Date of Admission: 06/12/17 Date of Discharge: 06/13/17 - Primary Discharge Diagnosis Active and Suspected Problems 1. Acute blood loss anemia secondary to lower GI bleed-requiring 2 units packed red blood cells 2. Lower GI bleed secondary to recent multiple polypectomies 3. Syncope with collapse and fall, prior to admission - Secondary Discharge Diagnosis Chronic Problems Hypertension (Chronic) BPH (benign prostatic hyperplasia) (Chronic) Hospital Course and Treatment Imaging Results: Diagnostic Data Brain CT 06/12/17 13:52 IMPRESSION: Chronic involutional changes of the brain. Electronically Signed: Shan Nunez DO at 14:56 EDT Tel , Service support , Cervical Spine CT 06/12/17 13:52 IMPRESSION: Multilevel degenerative changes, as described above. Electronically Signed: Shan Nunez DO at 14:56 EDT Tel , Service support , Chest X-Ray 06/12/17 13:52 IMPRESSION: Borderline cardiomegaly with low volume inspiration. No acute pathology. Electronically Signed: Mohinder Ross MD at 14:23 EDT , Service support , Dr. Chun- Surgery Operations: None Procedures: None Summary of Care Provided: The patient is a 76 year old M admitted 06/12/2017 due to syncope and lower GI bleed. Patient had multiple polypectomy about 10 days prior to admission. He had bright red rectal bleeding with diarrhea on and Wednesday night with associated dizziness and syncope which resulted in fall where patient hit his head. He had multiple syncopal episodes thereafter. CT of the C-spine and brain was done which showed no acute findings. Chest x-ray unremarkable. Hemoglobin 9.1 on admission which did drop to 7.4. EKG showed sinus bradycardia with no ST-T changes. Troponin negative ?3. Urinalysis negative. Syncope suspected secondary to anemia. Patient denies cardiac history. Patient received a total of 2 units packed red blood cells during admission. Dr. Gonzalez consulted who will see patient as outpatient on 06/15/17. Patient will continue home aspirin regimen until further advised by surgery to continue. He denies further weakness, syncope, dizziness. Hemoglobin at discharge 9.1. Other lab work unremarkable. Patient stable for discharge home. Patient seen and examined prior to discharge. Heart rate regular rate and rhythm. Lungs clear. Abdomen soft, nontender. Neuro grossly intact. Patient denies further bowel movement since admission and denies blood per rectum. He denies dizziness, lightheadedness, syncope/presyncope. Vital signs stable. Orthostatic vitals previously positive on admission and corrected with IV fluids and 2 units packed red blood cells. Repeat orthostatic vitals negative. Patient stable for discharge home with further follow-up with primary care physician and Dr. Chun. This patient was seen by DIEGO Rebolledo under the supervision of Dr. Esposito. Discharge Diet: Low fat/ Low Cholesterol Discharge Activity: Return to Normal Activity Call your doctor if you observe: - - Continued bleeding per rectum Home Medications: Medications to take at Discharge Amlodipine Besylate [Norvasc] 7.5 mg PO DAILY 06/12/17 Aspirin [Aspirin, Baby] 81 mg PO DAILY@0800 06/12/17 Atorvastatin Calcium 20 mg PO QHS 06/12/17 Doxazosin Mesylate [Cardura] 8 mg PO DAILY 06/12/17 Finasteride [Proscar] 5 mg PO DAILY 06/12/17 Multivitamin [Multiple Vitamins] 1 each PO DAILY 06/12/17 Tadalafil [Cialis] 20 mg PO PRN PRN 06/12/17 Primary Care Physician: Reji Esteban MD [Primary Care Provider] - Please follow up with your Primary Care Physician in: 1 Week Please Follow Up With: Brian Chun MD When: As scheduled, 06/15/17 Disposition: Home Minutes spent on discharge:: 35 Patient Condition:: Stable Medical Necessity - Tobacco Use Smoking Status: Never smoker Meaningful Use Info Meaningful Use Diagnoses (Choose all that apply): None applicable <Rex Esposito - Last Filed: 06/13/17 15:46> Discharge Date and Diagnosis - Primary Discharge Diagnosis Syncope and collapse secondary to lower GI bleed/orthostatic hypotension - Secondary Discharge Diagnosis Chronic Problems Hypertension (Chronic) BPH (benign prostatic hyperplasia) (Chronic) Hospital Course and Treatment Summary of Care Provided: This patient was seen in conjunction with GOLF BALL MOLDER, Monse. I have independently interviewed and examined the patient and reviewed pertinent history, examination findings, laboratory and plan of management. I have reviewed the note and agree with the documented findings with the few additional points. In brief, patient is admitted for syncope, collapse and fall secondary to lower GI bleed hemorrhage. Patient was admitted on the PCU floor. Orthostatic signs were positive and patient was restricted with the IV fluid normal saline and PRBC blood transfusion. Hemoglobin dropped to 7.4 g percent from 9.1 g percent and received 2 units of PRBC. As mentioned above, Dr. Gonzalez was consulted and patient was advised to follow-up on Wednesday. Patient did not had any further bleeding since Wednesday night and during hospital stay. Code Visit Inpatient E&M: [id number] Disch Hosp
--- NOTE | 2017-06-13 16:05 | NURSING ---
Discussed with patient at length that he is to not take his Aspirin until he is seen in the office by Dr. Chun. Patient and family member voiced understanding of same.
== END 2017-06-13 16:04 | disposition home or self-care (01) | DRG 920 ==
LOC: ED 14:22 → PCU 15:55
PROVIDERS: Internal Medicine; Admitting Provider Internal Medicine; Emergency Provider Emergency Medicine; Family Provider Family Medicine; PCP Family Medicine; Visit Provider Internal Medicine
DX: K91.840 Postprocedural hemorrhage of a digestive system organ or structure following a digestive system procedure (principal); D62 Acute posthemorrhagic anemia; I95.1 Orthostatic hypotension; I10 Essential (primary) hypertension; N40.0 Benign prostatic hyperplasia without lower urinary tract symptoms; Z79.82 Long term (current) use of aspirin; Z79.899 Other long term (current) drug therapy; Z86.010 Personal history of colon polyps; Y84.8 Other medical procedures as the cause of abnormal reaction of the patient, or of later complication, without mention of misadventure at the time of the procedure; Y73.3 Surgical instruments, materials and gastroenterology and urology devices (including sutures) associated with adverse incidents
CPT/HCPCS: 36415; 70450; 71045; 72125; 80048; 80053; 81001; 82962; 84484; 85014; 85018; 85025; 85027; 85610; 85730; 86850; 86900; 86920; 86922; 93005; 97161; 97165; 99285; J7030; J7040; P9016; A4216

== ENCOUNTER 2021-10-06 00:28 | Emergency (ER) | payer MEDICARE, OTHER, SELFPAY ==
[2021-10-06 00:29] VITALS: BP 187/80; PULSE 50; RESP 18; TEMP 36.6; O2SAT 96; BMI 31.3
[2021-10-06 00:33] VITALS: BP 187/80; PULSE 50; RESP 13; O2SAT 95
--- NOTE | 2021-10-06 00:57 | EKG12_ITS ---
Test Reason : cp Blood Pressure : / mmHG Vent. Rate : 052 BPM Atrial Rate : 052 BPM P-R Int : 204 ms QRS Dur : 116 ms QT Int : 454 ms P-R-T Axes : 040 -11 005 degrees QTc Int : 422 ms Sinus bradycardia Poor R wave progression Confirmed by JOSE A KOO, LYNN ([id number]), fashion editor BRETT FLANNERY ([id number]) on 10/07/2021 11:33:24 AM Referred By: Filiberto Confirmed By:LYNN NARANJO MD
--- NOTE | 2021-10-06 00:57 | RAD_ITS ---
EXAM: XR CHEST, 1 VIEW CLINICAL INDICATION: chest pain TECHNIQUE: Frontal view of the chest. This report was created using [employer] report generation technology. COMPARISON: 06/12/2017. FINDINGS: LUNGS AND PLEURAL SPACES: Focal dense opacity involving the periphery of the left lower lobe is new in the interval. No pneumothorax. No effusion. HEART: Unremarkable. Cardiac silhouette not enlarged. MEDIASTINUM: Central airways and mediastinal contour are unremarkable. BONES/JOINTS: Degenerative changes of the spine and the acromioclavicular joints. Question presence of a prominent left subacromial enthesophyte. SOFT TISSUES: Unremarkable. VASCULATURE: Ectatic thoracic aortic arch with atherosclerotic calcifications. RAD/Chest 1 View (Portable) IMPRESSION: Possible pneumonia involving the left lower lobe peripherally. Follow-up advised in 8 weeks to document stability. Electronically Signed: Julio César Franco MD at 1:55 EDT ,
--- NOTE | 2021-10-06 00:58 | ED.VIS.CHEST ---
HPI History of Present Illness Chief Complaint: Chest Pain Informant: patient Onset/Context/Timing Onset: Yesterday Activity at onset: gradual Timing: Waxes and wanes Quality: Positive for Aching and Tightness Current Severity: Mild Maximum Severity: Moderate Narrative Narrative: Patient present secondary to chest and left arm pain. He states around 3 PM yesterday afternoon he got pressure sensation in his left upper chest. That has since subsided but he has pain in his left arm that radiates up across the shoulder and into the neck. He does report increased physical activity recently with some remodeling work. He denies shortness of breath. He does state that he has been getting easily fatigued the last 2 weeks when he has been working. He denies personal history of coronary disease. He had a stress test in 2004 that was normal. PFSH PFS Medical History History of melena Hyperlipidemia Hypertension Non-smoker Home Medications amlodipine 2.5 mg tablet (Norvasc) 10 mg PO DAILY BLOOD PRESSURE 06/12/17 [History Last Taken Unknown] aspirin 81 mg chewable tablet 81 mg PO DAILY@0800 ANTIPLATELET 06/12/17 [History Last Taken Unknown] atorvastatin 20 mg tablet 40 mg PO QHS CHOLESTEROL 06/12/17 [History Last Taken Unknown] doxazosin 8 mg tablet (Cardura) 8 mg PO DAILY BLOOD PRESSURE 06/12/17 [History Last Taken Unknown] finasteride 5 mg tablet 5 mg PO DAILY PROSTATE 06/12/17 [History Last Taken Unknown] multivitamin (Multiple Vitamins tablet) 1 ea PO DAILY SUPPLEMENT 06/12/17 [History Last Taken Unknown] tadalafil 20 mg tablet (Cialis) 20 mg PO PRN PRN Not Specified 06/12/17 [History Last Taken Unknown] acetaminophen 650 mg tablet,extended release 650 mg PO Q8 10/06/21 [History Last Taken Unknown] Allergy/AdvReac Type Severity Reaction Status Date / Time No Known Allergies Allergy Verified 10/06/21 00:29 Social History Smoking Status: Never smoker ROS ROS ED Constitutional Constitutional ED: Denies chills or fever(s) Eyes Eyes: Denies change in vision or discharge from eye(s) ENT ENT ED: Denies discharge from eye(s), rhinorrhea or sore throat Cardiovascular Cardiovascular: Reports chest pain; Denies palpitations Respiratory/Chest Respiratory/Chest: Denies cough or dyspnea Gastrointestinal Gastrointestinal: Denies abdominal pain, diarrhea, nausea or vomiting Genitourinary Genitourinary ED: Denies difficulty urinating or dysuria Musculoskeletal Musculoskeletal: Reports extremity pain and neck pain; Denies back pain Integumentary Denies Abrasions or rash Neurologic Neurologic: Denies headache(s) or weakness Psychiatric Psychiatric: Denies anxiety or depression Allergic/Immunologic Allergic/Immunologic ED: Denies lip swelling or urticaria EXAM Physical Exam Const Vital Signs: 10/06/21 00:29 10/06/21 00:33 10/06/21 00:33 Temperature 97.8 F Temperature Source Oral Pulse Rate 50 L 50 L Respiratory Rate 18 13 Respiratory Effort Normal Blood Pressure 187/80 H 187/80 H Blood Pressure Mean 115 115 Pulse Ox 96 95 Oxygen Delivery Method Room Air Room Air 10/06/21 01:00 10/06/21 02:01 10/06/21 03:58 Temperature Temperature Source Pulse Rate 65 76 Respiratory Rate 25 H 18 Respiratory Effort Blood Pressure 171/73 H 149/78 H Blood Pressure Mean 105 101 Pulse Ox 98 93 Oxygen Delivery Method Room Air Room Air Room Air 10/06/21 04:35 Temperature Temperature Source Pulse Rate 74 Respiratory Rate 15 Respiratory Effort Blood Pressure 153/75 H Blood Pressure Mean 101 Pulse Ox 99 Oxygen Delivery Method Room Air Positive well nourished and well developed General Appearance ED: well developed HEENT Reports normocephalic and head/scalp atraumatic Eyes PERRL and EOMs intact bilaterally Neck supple Chest Wall inspection of chest normal and palpation of chest normal Resp normal respiratory effort and clear to auscultation bilaterally Cardio regular rate and regular rhythm GI normal to inspection, nondistended, normoactive bowel sounds Palpation: soft Extremity normal to inspection Neuro oriented x3 and no sensory deficits noted Sensorium / Orientation: alert Motor Exam: strength 5/5 throughout Psych mental status grossly normal Skin no rashes or lesions noted Heart Score History: Slightly/Non-Suspicious ECG: Normal Age: >/= 65 years Risk Factors: 1 or 2 Risk Factors Troponin: </= Normal Limit Score: 3 MDM MDM MDM Narrative Medical decision making narrative: Patient had been given aspirin with EMS prior to arrival. EKG, chest x-ray, lab work obtained. Lab Data Attestation: I reviewed the patient's lab results. Labs: Laboratory Results - last 24 hr 10/06/21 10/06/21 10/06/21 00:40 00:40 03:08 WBC 7.6 RBC 4.47 L Hgb 14.1 Hct 40.8 MCV 91.3 MCH 31.5 MCHC 34.6 RDW Std Deviation 45.1 H RDW Coeff of [place] 13.4 Plt Count 187 MPV 10.5 Immature Gran % (Auto) 0.500 Neut % (Auto) 60.9 Lymph % (Auto) 28.7 [place] % (Auto) 8.1 Eos % (Auto) 1.4 Baso % (Auto) 0.4 Absolute Neuts (auto) 4.7 Absolute Lymphs (auto) 2.19 Nucleated RBC % 0 Sodium 142 Potassium 3.4 L Chloride 110 H Carbon Dioxide 26.0 Anion Gap 6 BUN 14 Creatinine 0.99 Estim Creat Clear Calc 55.49 Est GFR (MDRD) Af Amer 94 Est GFR (MDRD) Non-Af 78 BUN/Creatinine Ratio 14.1 Glucose 101 Calcium 8.9 Troponin I High Sens 14 15 Radiography Chest X-Ray - ED: 1 View, Read by ED Physician and Chronic Changes Diagnostic Testing: Clinical Impression(s) from Imaging Studies Chest X-Ray 10/06/21 00:57 IMPRESSION: Possible pneumonia involving the left lower lobe peripherally. Follow-up advised in 8 weeks to document stability. Electronically Signed: Julio César Franco MD at 1:55 EDT , EKG Initial EKG: Attestation: I personally reviewed and interpreted this EKG as follows: Interpretation: Sinus Bradycardia (Sinus bradycardia 52 bpm. No acute ischemia.) Treatment and Re-Evaluation Narrative: Repeat evaluation patient resting comfortably. He denies any pain at this time. CBC and chemistry studies are unremarkable other than slightly low potassium at 3.4.. He has 2 negative troponins. Chest x-ray per my interpretation shows chronic changes only. Radiology felt there may be a pneumonia left lower lobe peripherally. Patient has not had significant cough, fever, other symptoms of pneumonia. Test results are discussed with patient and at bedside. With 2 negative troponins and a heart score 3 I do not feel he requires hospital admission for stress test. I did recommend close follow-up with his primary care physician. He is comfortable with this plan. Return instructions are provided. Discharge Plan Triage Chief Complaint: Chest Pain ED Provider: Selina Thompson Dx/Rx/DC Orders Clinical Impression: Chest pain Instructions: ED Chest Pain, Uncertain Cause Prescriptions: No Action multivitamin [Multiple Vitamins] 1 EACH tablet 1 ea PO DAILY atorvastatin 20 MG tablet 40 mg PO QHS amlodipine [Norvasc] 2.5 MG tablet 10 mg PO DAILY doxazosin [Cardura] 8 MG tablet 8 mg PO DAILY aspirin 81 MG tablet,chewable 81 mg PO DAILY@0800 finasteride 5 MG tablet 5 mg PO DAILY tadalafil [Cialis] 20 MG tablet 20 mg PO PRN PRN (Reason: Not Specified) acetaminophen [Tylenol Arthritis] 650 mg Tablet Extended Release 650 mg PO Q8 Primary Care Provider: Reji Esteban Referrals: Reji Esteban MD [Primary Care Provider] - As soon as possible Disposition Disposition: Home, Self Care Discharge Date/Time: 10/06/21 04:36
[2021-10-06 01:05] LABS: Absolute Lymphocyte Count 2.19 X10^3/uL (0.83-4.51); Absolute Neutrophil Count 4.7 X10^3/uL (2.0-7.7); Basophil# 0.03 X10^3/uL; Basophil% 0.4 % (0-1); Eosinophil# 0.11 X10^3/uL; Eosinophils% 1.4 % (0-5); Hematocrit 40.8 % (40-54); Hemoglobin 14.1 g/dL (13.0-16.5); Lymphocyte # 2.19 X10^3/ul (0.83-4.51); Lymphocyte % 28.7 % (19-41); Mean Corp Hgb Conc 34.6 g/dL (32-36); Mean Corpuscular Hgb 31.5 pg (27.0-32.0); Mean Corpuscular Volume 91.3 fL (80-94); Mean Platelet Vol. 10.5 fl (6.2-12.0); Monocyte# 0.62 X10^3/uL; Monocyte% 8.1 % (0-10); NRBC Flagged by Analyzer 0 % (0-5); Neutrophil # 4.65 X10^3/uL (2.7-7.7); Neutrophil % 60.9 % (47-70); Platelet Count 187 K/mm3 (150-450); RBC Distribution Width CV 13.4 % (11.6-14.6); RBC Distribution Width SD 45.1 fl (35.1-43.9); Red Blood Count 4.47 M/mm3 (4.6-6.2); White Blood Count 7.6 K/mm3 (4.4-11.0)
[2021-10-06 01:22] LABS: Anion Gap 6 (5-15); BUN 14 mg/dL (7-18); BUN/Creat Ratio 14.1 RATIO (10-20); Calcium,Total 8.9 mg/dL (8.5-10.1); Chloride 110 mmol/L (98-107); Creatinine, Serum 0.99 mg/dL (0.70-1.30); EST Glomerular Filtration Rate 78 mL/min (>60); Est Glom Filt Rate - Afr Amer 94 mL/min (>60); Estimated Creatinine Clearance 55.49 ml/min; Glucose 101 mg/dL (74-106); Potassium 3.4 mmol/L (3.5-5.1); Sodium Level 142 mmol/L (136-145); Troponin-I HS (w/2H Reflex) 14 pg/mL (3.0-78.0)
[2021-10-06 02:01] VITALS: BP 171/73; PULSE 65; RESP 25; O2SAT 98
[2021-10-06 03:01] LABS: Reflex Troponin-HS? (from REC) Y
[2021-10-06 03:42] LABS: Troponin-I HS 15 pg/mL (3.0-78.0)
[2021-10-06 03:58] VITALS: BP 149/78; PULSE 76; RESP 18; O2SAT 93
[2021-10-06 04:35] VITALS: BP 153/75; PULSE 74; RESP 15; O2SAT 99
== END 2021-10-06 04:36 | disposition home or self-care (01) ==
PROVIDERS: Emergency Provider Emergency Medicine; PCP Family Medicine; Visit Provider Emergency Medicine
DX: R07.9 Chest pain, unspecified (principal); I10 Essential (primary) hypertension; E78.5 Hyperlipidemia, unspecified; Z79.82 Long term (current) use of aspirin; Z79.899 Other long term (current) drug therapy
CPT/HCPCS: 71045; 80048; 84484; 85025; 93005; 99285; A4216